=== PATIENT | female | born 1950 | race Caucasian/White ===

== ENCOUNTER 2016-12-02 00:16 | Emergency (ER) | payer MEDICARE ==
[~2016-12-02] VITALS: Ht 157.5 cm; Wt 67.3 kg
[2016-12-02 00:18] VITALS: TEMP 97.9
[2016-12-02] MEDS ORDERED: BUSPAR DIVIDOSE15 MG PO (00:22)
[2016-12-02] MEDS ORDERED: KLONOPIN 0.5MG0.5 MG PO (00:24)
[2016-12-02] MEDS ORDERED: ADVIL200 MG PO (00:24)
[2016-12-02] MEDS ORDERED: CEPHALEXIN500 M1 PO (00:56)
[2016-12-02 01:21] VITALS: BP 127/74; PULSE 81
== END 2016-12-02 01:21 | disposition home or self-care (01) ==
LOC: COL.ER 00:16
DX: S80.212A Abrasion, left knee, initial encounter (principal); L03.116 Cellulitis of left lower limb; M54.2 Cervicalgia; M25.561 Pain in right knee; W01.10XA Fall on same level from slipping, tripping and stumbling with subsequent striking against unspecified object, initial encounter; Y92.414 Local residential or business street as the place of occurrence of the external cause; M25.512 Pain in left shoulder; M25.511 Pain in right shoulder